=== PATIENT | female | born 1945 ===

== ENCOUNTER → 2017-11-07 | Day surgery (SDC) | payer OTHER ==
[~2017-11-07] VITALS: Ht 167.6 cm; Wt 68.0 kg
--- NOTE | 2017-11-07 13:47 | Operative Report ---
Operative/Inv Procedure Report Surgery Date: 11/07/17 Name of Procedure: Cataract extraction lens implantation trabeculectomy mitomycin-C left eye Pre-Operative Diagnosis: Age-related cataract and uncontrolled glaucoma left eye 20/50 vision Post-Operative Diagnosis: Same Estimated Blood Loss: scant Surgeon/Angle Shear Set Up Operator: Deven Farley MD Anesthesia: local monitored anesthesi, Sub-tenon's infusion Complications: None Operative/Procedure Note Note: The patient had uncontrolled intraocular pressure and was on maximal medical therapy. She was consented for trabeculectomy of the left eye with mitomycin-C. Mitomycin was used in this case because the patient was having concurrent intraocular surgery. The patient was brought to the operating room and standard monitoring equipment was attached. The patient was prepped and draped in the usual fashion for sterile intraocular surgery. A lid speculum was used to retract the lids. 1 partial-thickness corneal relaxing incision was made at 100 lidocaine was introduced into the anterior chamber to provide anesthesia. The conjunctiva and Tenon's tissue was opened at the 12 o'clock position using non- toothed forceps and a Vannas scissors. A fornix based conjunctival peritomy was continued using Latesha's scissors. Additional anesthesia was achieved by infusing a 50:50 mixture of 2 percent lidocaine and 0.75 Marcaine which had been mixed previously underneath the conjunctiva and tenon's tissue. The sclera at the limbus was cleaned off using a 69 blade and a Weck-Ashley sponge. A partial thickness groove was made tangential to the limbus approximately 1.5 mm back using the same 69 blade. A crescent knife was used to tunnel from this incision into clear cornea and then the anterior chamber was entered with a 2.4 mm keratome. 1 mL of non-preserved lidocaine was introduced into the anterior chamber to provide anesthesia. The anterior chamber was then filled and deepened with viscoelastic. A curvilinear capsulorrhexis was achieved using a 30-gauge needle and is a cystotome and capsulorrhexis was finished using a Utrata forceps. The lens was then hydrodissected with balanced salt solution and found to be rotatable. The lens was emulsified using phacoemulsification and a modified four-quadrant cracking technique. The residual cortical material was removed using automated irrigation and aspiration and as much of the anterior capsular rim was cleaned as well as possible. The posterior capsule was cleaned first with the automated machine on a low setting and then manually with a Haseeb squeegee. The capsular bag was deepened with viscoelastic. The lens a Technis 1 23.0 Diopter placed into the bag under direct visualization and rotated so that the haptics were at 12 and 6:00. Several punches of the posterior wound lip were taken with a Anne Descemet punch. A Hardin forceps was used to grasp the iris and a peripheral iridectomy was fashioned using the Vannas scissors. Viscoelastic was then removed from the eye by flushing it out and then by automated irrigation and aspiration. The trabeculectomy flap was sutured using 2 interrupted 10-0 nylon sutures whose knots were trimmed and buried. The flap was assessed for flow but no additional sutures were placed. Mitomycin-C 0.4 mg/mL was placed on several previously cut Weck-Ashley sponges and held underneath the tenons fascia for approximately 90 seconds keeping the edge of the conjunctival surface away from the mitomycin. The instruments used to handle the mitomycin were removed from the field and the area copiously irrigated with balanced salt solution. The conjunctiva was reapproximated to the eye wall using 2 interrupted and one running 10-0 nylon sutures whose knots were trimmed and rotated underneath the tissue. The eye was pressurized to an adequate tone by introducing balanced salt solution into the anterior chamber. This caused the bleb to elevate. 1/10 of a cc of cefuroxime solution was introduced into the anterior chamber to provide antibiotic prophylaxis.The bleb area was assessed for leaks and since there were none the the lid speculum was removed. The eye was patched over antibiotic, steroid and atropine drops and a combination of antibiotic and steroid ointment. The eye was then shielded. Patient was removed from the operating room in stable condition and brought to same-day surgery having tolerated the procedure well.
== END ==
LOC: STS 02:26
DX: H25.89 Other age-related cataract (principal); H40.1120 Primary open-angle glaucoma, left eye, stage unspecified; I10 Essential (primary) hypertension; E07.9 Disorder of thyroid, unspecified
CPT/HCPCS: J2001; J2250; J7315; V2632